=== PATIENT | female | born 1980 | race Caucasian/White ===

== ENCOUNTER 2020-12-12 16:31 | Emergency (ER) | payer OTHER ==
[2020-12-12 17:31] LABS: HEMOGLOBIN 12.8 gm/dl (12.3-15.3); RED BLOOD COUNT 4.29 M/UL (4.00-5.10); WHITE BLOOD COUNT 7.5 K/UL (4.5-11.0)
[2020-12-12 17:50] LABS: BUN/CREATININE RATIO 9 (0-10)
[2020-12-12] MEDS ORDERED: ZOFRAN ODT 4 MG4 MG PO (18:32)
== END 2020-12-12 18:55 | disposition home or self-care (01) ==
LOC: ER1 16:31
PROVIDERS: Family Medicine
DX: R06.00 Dyspnea, unspecified (principal); R11.2 Nausea with vomiting, unspecified; M54.2 Cervicalgia; E87.6 Hypokalemia; F17.290 Nicotine dependence, other tobacco product, uncomplicated
CPT/HCPCS: 71045; 80053; 81001; 82550; 82553; 83690; 83735; 83874; 84439; 84443; 84484; 84703; 85025; 85379; 93005; 96374; 99284; J2405